=== PATIENT | female | born 1975 | race Caucasian/White ===

== ENCOUNTER → 2021-02-10 | Outpatient (CLI) | payer OTHER ==
[~2021-02-10] MED LIST: HYDROCODON-ACE1 EAC6 PO; IBUPROFEN800 MG PO; LEXAPRO TAB 1010 MG PO; PRINIVIL20 MG PO
== END ==
LOC: EMI 11:01
DX: S83.511A Sprain of anterior cruciate ligament of right knee, initial encounter (principal)
CPT/HCPCS: 73721

== ENCOUNTER → 2021-03-21 | Day surgery (SDC) | payer OTHER ==
[~2021-03-21] VITALS: Ht 167.6 cm; Wt 104.3 kg
== END | disposition home or self-care (01) ==
LOC: OR 05:19
DX: M24.661 Ankylosis, right knee (principal); M76.9 Unspecified enthesopathy, lower limb, excluding foot; I10 Essential (primary) hypertension; F41.9 Anxiety disorder, unspecified; F32.9 Major depressive disorder, single episode, unspecified; Z79.899 Other long term (current) drug therapy; Z20.822 Contact with and (suspected) exposure to COVID-19
CPT/HCPCS: J0592; J1100; J1885; J2001; J2250; J2274; J2405; J2704; J2795; J3010; J3301; J7120